=== PATIENT | female | born 1955 | race Caucasian/White ===

== ENCOUNTER 2017-08-22 15:27 | Observation (INO) | payer MEDICAID ==
[~2017-08-22] VITALS: Ht 157.5 cm; Wt 108.2 kg
--- NOTE | ~2017-08-22 | HEMODYNAMI ---
PATIENT:MEENA FIELDS MEDICAL RECORD: [id number] : 55 [id number] ADMISSION DATE: 08/22/17 Generatedon:08/23/20178:43 Patient name: MEENA FIELDS Patient #: [id number] SSN: : 1955 Date of study: 08/23/2017 Page: Of Hemodynamic Procedure Report Patient Data Patient Demographics Procedure consent was obtained First Name: MEENA Gender: Female Last Name: DIAMOND : 1955 Middle Initial: TWAN Age: 61 year(s) Patient #: [id number] Race: Unknown Additional ID: [id number] Contact details Address: [address] [place] [address] [facility] State: [place] City: [place] Zip code: [address] Admission Admission Data Admission Date: 08/22/2017 Admission Time: 17:32 Room #: D.2116 Height (in.): 62 BSA: 2.06 (m2) Height (cm.): 157.48 BMI: 43.62 (kg/m2) Weight (lbs.): 238.5 Weight (kg.): 108.18 Lab Results Lab Result Date: 08/22/2017 Lab Result Time: 15:00 Biochemistry Name Units Result Min Max BUN mg/dl 15 --(--*-)-- 7 18 Creatinine mg/dl 0.8 --(-*--)-- 0.6 1.3 CBC Name Units Result Min Max Hematocrit % 55.7 --(----)*- 42 54 Hemoglobin g/dl 17.6 --(----)*- 13.5 17.5 Procedure Procedure Types Cath Procedure Diagnostic Procedure [facility] Procedure Description Procedure Date Procedure Date: 08/23/2017 Procedure Start Time: 8:30 Procedure End Time: 8:41 Procedure Staff Name Function Hood Trevizo MD Performing Physician Nelda Guerra RT Monitor Coleen Petersen RT Scrub Gerson Pace RN Nurse Procedure Data Cath Procedure Fluoroscopy Diagnostic fluoroscopy Total fluoroscopy Time: 1.1 time: 1.1 min min Diagnostic fluoroscopy Total fluoroscopy dose: 293 dose: 293 mGy mGy Contrast Material Contrast Material Type Amount (ml) Isovue 300 40 Entry Location Entry Primary Successful Side Size Upsize Upsize Entry Closure Succes sful Closure Location (Fr) 1 (Fr) 2 (Fr) Remarks Device Remarks Femoral Right 5 Fr Exoseal artery Estimated blood loss: 10 ml Diagnostic catheters Device Type Used For End Catheter Placement MULTIPACK JL 4.0 5Fr Procedure catheter MULTIPACK 3DRC 5Fr Procedure catheter MULTIPACK Pigtail 5 Fr Procedure catheter Procedure Complications No complications Procedure Medications Medication Administration Route Dosage Oxygen NC 2 l/min Lidocaine 2% added to field 20 Heparin Flush Bag added to field 2 bags (1000units/500ml NS) 0.9% NaCl I.V. 100 ml/hr Versed I.V. 1 mg Fentanyl I.V. 25 mcg Hemodynamics Rest BSA: 2.06 (m2) HGB: 17.6 (g/dl) O2 Consumption: Estimated: 190.75 (ml/min) O2 Co nsumption indexed: Estimated:92.6 (ml/min/m) Heart Rate: 65 (bpm) Pressure Samples Time Site Value (mmHg) Purpose Heart Use Rate(bpm) 8:37 LV 115/-4,12 EDP 68 Gradients Valve Time Site Site Mean SEP/DFP Peak To Heart Use 1 2 (mmHg) (sec/min) Peak Rate (mmHg) (bpm) Aortic 8:38 LV AO 67 Snapshots Pre Cath Intra NCS Post Cath Vital Signs Time Heart Resp SPO2 etCO2 NIBP (mmHg) Rhythm Pain Sedation Rate (ipm) (%) (mmHg) Status Level (bpm) 8:18:43 67 19 96 0 133/81(108) NSR 0 (11) 10(A) , No pain 8:22:51 67 17 97 0 134/84(106) NSR 0 (11) 10(A) , No pain 8:27:01 69 17 97 0.7 133/79(102) NSR 0 (11) 10(A) , No pain 8:31:11 67 15 94 0.7 128/78(87) NSR 0 (11) 10(A) , No pain 8:35:35 66 13 93 15.7 127/73(105) NSR 0 (11) 10(A) , No pain 8:39:43 71 14 94 31.4 127/75(96) NSR 0 (11) 10(A) , No pain Medications Time Medication Route Dose Verified Delivered Reason Notes Effec tiveness by by 8:05:44 Oxygen NC 2 Hood Buffie used for l/min Santhosh Pace RN procedure MD 8:05:50 Lidocaine 2% added 20ml Hood Hood for local to vial Santhosh Trevizo MD anesthetic field MD 8:05:57 Heparin Flush added 2 Hood Hood used for Bag to bags Santhosh Trevizo MD procedure (1000units/500ml field LAU NS) 8:06:07 0.9% NaCl I.V. 100 Hood Buffie Per ml/hr Santhosh Pace RN physician 8:27:28 Versed I.V. 1 mg Hood Buffie for Santhosh Pace RN sedation 8:27:34 Fentanyl I.V. 25 Hood Buffie for mcg Santhosh Pace RN sedation Procedure Log Time Note 7:53:27 Coleen Petersen RT(R) sent for patient. Start room use. 7:53:28 Time tracking: Regular hours 7:53:33 Plan of Care:Hemodynamics will remain stable., Cardiac rhythm will remain stable., Comfort level will be maintained., Respiratory function will remain adequate., Patient/ family verbilizes understanding of procedure., Procedure tolerated without complication., Recovers from procedure without complications.. 8:05:44 Oxygen 2 l/min NC was administered by Gerson Pace RN; used for procedure; 8:05:50 Lidocaine 2% 20ml vial added to field was administered by Hood Trevizo MD; for local anesthetic; 8:05:57 Heparin Flush Bag (1000units/500ml NS) 2 bags added to field was administered by Hood Trevizo MD; used for procedure; 8:06:07 0.9% NaCl 100 ml/hr I.V. was administered by Gerson Pace RN; Per physician; 8:13:05 Patient received from Med II to CCL 2 Alert and oriented. Tansferred to table in Supine position. 8:13:07 Warm blankets applied, and chester hugger turned on for patient comfort. 8:13:07 Correct patient and procedure confirmed by team. 8:13:10 Signed procedure consent form obtained from patient. 8:13:11 ECG and BP/O2 sat monitors applied to patient. 8:17:21 Vital chart was started 8:17:22 Baseline sample Acquired. 8:17:25 Rhythm: sinus rhythm 8:17:26 Full Disclosure recording started 8:17:30 H&P Date Dictated: 08/23/2017 New H&P dictated by physician.. 8:17:31 Pre-procedure instructions explained to patient. 8:17:32 Pre-op teaching completed and patient verbalized understanding. 8:17:34 Family in waiting room. 8:17:35 Patient NPO since Midnight. 8:17:37 Is the patient allergic to Iodine/contrast media? No. 8:17:53 Is patient on blood thinner?Yes 8:17:56 ACC The patient was administered the following blood thiners within the last 24 hours: ACCPlavix 8:17:58 Patient diabetic? No. 8:18:02 Previous problem with sedation/anesthesia? No ? 8:18:04 Snore? Yes 8:18:05 Sleep apnea? No 8:18:06 Deviated septum? No 8:18:07 Opens mouth fully? Yes 8:18:08 Sticks out tongue? Yes 8:18:10 Airway obstruction? No ? 8:18:12 Dentures? No ? 8:19:01 Pre procedure: right dorsailis pedis pulse 2+ Normal; easily identifiable; not easily obliterated 8:19:06 Patient pain scale 0/10 ?. 8:19:11 IV patent on arrival in right hand with 0.9% NaCl at [facility]. 8:19:13 Lab results completed and on chart. 8:19:53 Lab Result : Creatinine 0.8 mg/dl 8:19:53 Lab Result : BUN 15 mg/dl 8:19:53 Lab Result : Hemoglobin 17.6 g/dl 8:19:53 Lab Result : Hematocrit 55.7 % 8:19:57 Right groin area was prepped with chlora-prep and draped in sterile fashion 8:19:58 Alarms reviewed by Subhash Carreno 8:20:04 Use device set Femoral Dx 8:20:05 ACIST Syringe (01329) opened to sterile field. 8:20:05 Bag Decanter (2002S) opened to sterile field. 8:20:06 Medline Cath Pack ([id number]) opened to sterile field. 8:20:07 ACIST Hand Control (39491) opened to sterile field. 8:20:08 ACIST Manifold (91817) opened to sterile field. 8:20:09 Tegaderm 4 x 4 (1626W) opened to sterile field. 8:20:11 MICROPUNCTURE 4FR Cook ([id number]) opened to sterile field. 8:20:30 SHEATH Prelude 5Fr 0.035 ([id number]-1G-01-035) opened to sterile field. 8:20:34 DIAGNOSTIC Multipack 5Fr catheter set ([id number]) opened to sterile field. 8:20:46 Physician arrived 8:20:47 --------ALL STOP TIME OUT------ 8:20:49 Right groin site verified by team. 8:20:52 Physical assessment completed. ASA score P 2 - A patient with mild systemic disease as per Hood Trevizo MD. 8:20:55 Sedation plan: IV Moderate Sedation Medication:Versed, Fentanyl 8:24:49 Patient Height : 62 inches 8:24:57 Patient Weight : 238.5 lbs 8:27:28 Versed 1 mg I.V. was administered by Gerson Pace RN; for sedation; 8:27:34 Fentanyl 25 mcg I.V. was administered by Gerson Pace RN; for sedation; 8:30:41 Procedure started. 8:30:58 Local anesthetic to right femoral artery with Lidocaine 2% by Hood Trevizo MD.INITIAL ACCESS ONLY 8:31:08 A 5 Fr sheath was inserted into the Right Femoral artery 8:32:11 DIAGNOSTIC WIRE .035 260cm J wire (021166) opened to sterile field. 8:32:12 SHEATH 5FR [place] (GVO144) opened to sterile field. 8:32:21 A MULTIPACK JL 4.0 5Fr catheter was advanced over the wire and used for Procedure. 8:32:25 LCA angiography performed. 8:35:11 A MULTIPACK 3DRC 5Fr catheter was advanced over the wire and used for Procedure. 8:35:58 RCA angiography performed. 8:36:06 Catheter removed. 8:36:35 A MULTIPACK Pigtail 5 Fr catheter was advanced over the wire and used for Procedure. 8:36:47 LV angiography performed. 8:37:25 LV gram done using GARZA 8:37:52 LV hemodynamics recorded. 8:38:10 EF : 60 % 8:38:19 Catheter removed. 8:38:22 EXOSEAL 5Fr (EX500) opened to sterile field. 8:39:05 Sheath removed intact; hemostasis achieved with Exoseal to the Right Femoral artery. 8:39:08 Procedure ended.(Physican Out) 8:39:46 Fluoroscopy time 01.10 minutes. 8:39:50 Flurop Dose total: 293 8:39:50 Fluoroscopy dose: 293 mGy 8:39:54 Contrast amount:Isovue 300 40ml. 8:39:56 Sharps counted by scrub and verified by R.N. 8:39:57 Insertion/operative site no bleeding no hematoma. 8:40:02 Post-op/insertion site Right Femoral artery dressed using a 4 x 4 and Tegaderm. 8:40:03 Post Procedure Pulses reassessed and unchanged 8:40:09 Post-procedure physical assessment completed. ASA score P 2 - A patient with mild systemic disease as per Hood Trevizo MD. 8:40:12 Post procedure rhythm: unchanged. 8:40:15 Estimated blood loss: 10 ml 8:40:18 Post procedure instruction explained to patient.Patient verbalizes understanding. 8:40:19 Patient needs reinforcement of post procedure teaching. 8:40:25 Procedure and supply charges have been captured, reviewed, submitted and are correct. 8:41:18 Procedure Complication : No complications 8:41:21 Vital chart was stopped 8:41:21 See physician's report for complete and final results. 8:41:24 Report given to Med II. 8:41:26 Patient transfered to Med II with Bed. 8:41:28 Procedure ended. 8:41:28 Full Disclosure recording stopped 8:41:32 End room use (Document Last) Device Usage Item Name Manufacture Quantity Catalog Number Hospital Part Current M inimal Lot# / Charge Number Stock Stock Serial# Code ACIST Syringe Acist 1 43496 159751 198306 431478 2 0 (91602) [employer] Bag Decanter Microtek 1 [id number] 69879 954047 5 () [employer] Inc[employer] Medline Cath Cardinal 1 [id number] 109282 93484 772459 5 [employer] ([id number]) ACIST Hand Acist 1 23948 446554 635434 709977 5 Control (27188) [employer] ACIST Manifold Acist 1 20335 271630 613078 801572 5 (44845) [employer] Tegaderm 4 x 4 3M 1 1626W 392268 310448 313173 5 (1626W) MICROPUNCTURE Cook Medical 1 [id number] 420603 723278 558812 5 4FR Cook ([id number]) SHEATH Prelude Merit 1 [id number]-40-035 836624 967350 457706 5 5Fr 0.035 Medical ([id number]-2I-55-035) DIAGNOSTIC Cardinal 1 [id number] 498526 49961 467985 3 0 Multipack 5Fr Health catheter set ([id number]) DIAGNOSTIC WIRE [facility] 1 233041 010435 409550 883704 3 0 .035 260cm J wire (206774) SHEATH 5FR Terumo 1 CSF923 493492 683603 516443 4 0 [place] (PGB867) MULTIPACK JL Cardinal 1 043025 5 4.0 5Fr Health catheter MULTIPACK 3DRC Cardinal 1 154290 5 5Fr catheter Health MULTIPACK Cardinal 1 487227 5 Pigtail 5 Fr Health catheter EXOSEAL 5Fr Cardinal 1 EX500 695274 072752 813264 1 0 (EX500) Health Signature Audit [place] Stage Time Signature Unsigned Intra-Procedure 08/23/2017 Coleen Petersen 8:43:53 AM RT(R) Signatures Monitor : Nelda Guerra RT Signature : Date : Time : [facility] [address] [facility] [place] [address]
[2017-08-22 16:23] LABS: BASOPHILS 0.4 % (0-2); EOSINOPHILS 5.3 % (0-7); HEMATOCRIT 55.7 % (36.0-48.0); HEMOGLOBIN 17.6 g/dL (12-16); IMMATURE GRANULOCYTES 0.4 % (0-5); LYMPHOCYTES 15.7 % (15-50); MCH 27.8 pg (26.0-34.0); MCHC 31.6 g/dL (31.0-37.0); MCV 87.9 fL (80.0-100.0); MEAN PLATELET VOLUME 10.1 fL (7.4-10.4); MONOCYTES 6.3 % (2-11); NEUTROPHILS 71.9 % (40-80); RBC 6.34 10x6/uL (4.00-5.40); RDW 13.4 % (11.5-14.5); WBC 5.3 10x3/uL (4.8-10.8)
[2017-08-22 16:26] LABS: PLATELET COUNT 124 10x3/uL (130-400)
[2017-08-22 16:39] LABS: ALBUMIN 3.4 g/dL (3.4-5.0); ALKALINE PHOSPHATASE 59 U/L (46-116); ALT (SGPT) 23 U/L (10-68); BILIRUBIN - TOTAL 0.33 mg/dL (0.2-1.3); CALC OSMOLALITY 281 mosm/kg (275-300); CALCIUM 8.8 mg/dL (8.5-10.1); CARBON DIOXIDE 23.4 mmol/L (21.0-32.0); CHLORIDE - SERUM 106 mmol/L (98-107); CREATININE - SERUM 0.8 mg/dL (0.6-1.3); GLUCOSE 131 mg/dL (74-106); POTASSIUM - SERUM 4.9 mmol/L (3.5-5.1); PROTEIN - SERUM 7.4 g/dL (6.4-8.2); SODIUM 140 mmol/L (136-145); UREA NITROGEN 15 mg/dL (7-18); eGFR NON AFRICAN AMERICAN 77 mL/min (90-120)
[2017-08-22 16:53] LABS: CHOL - HDL RATIO 2.8 ratio (2.3-4.1); CHOLESTEROL, TOTAL 163 mg/dL (0-200); CKMB 1.5 U/L (0.0-3.6); CREATINE KINASE 145 UL (21-215); HDL CHOLESTEROL 58 mg/dL (32-96); LDL CHOLESTEROL 69 mg/dL (0-100); LDL-HDL RATIO 1.2 ratio (1.5-3.5); MAGNESIUM - SERUM 1.9 mg/dL (1.8-2.4); TRIGLYCERIDE 183 mg/dL (30-200)
[2017-08-22 16:57] LABS: TROPONIN-I < 0.017 ng/mL (0.000-0.060)
[2017-08-22 18:23] LABS: CREATINE KINASE 84 UL (21-215); TROPONIN-I < 0.017 ng/mL (0.000-0.060)
[2017-08-22 21:01] VITALS: BP 112/55
[2017-08-22 22:51] VITALS: BP 112/55; BMI 43.1
[2017-08-23 00:36] LABS: CKMB 0.9 U/L (0.0-3.6); CREATINE KINASE 75 UL (21-215); TROPONIN-I < 0.017 ng/mL (0.000-0.060)
[2017-08-23] MEDS ORDERED: ZOCOR20 MG PO (03:40)
[2017-08-23] MEDS ORDERED: KLONOPIN0.5 MG PO (03:40)
[2017-08-23] MEDS ORDERED: BUPROPION HCL75 MG PO (03:41)
[2017-08-23] MEDS ORDERED: LEXAPRO10 MG PO (03:41)
[2017-08-23] MEDS ORDERED: LISINOPRIL10 MG PO (03:41)
[2017-08-23] MEDS ORDERED: BAYER CHEWABLE81 MG PO (03:42)
[2017-08-23] MEDS ORDERED: FERROUS SULFAT325 MG PO (03:42)
[2017-08-23 06:22] VITALS: BP 111/55
[2017-08-23 06:35] LABS: CKMB 0.8 U/L (0.0-3.6); CREATINE KINASE 67 UL (21-215); TROPONIN-I < 0.017 ng/mL (0.000-0.060)
[2017-08-23 07:54] LABS: BASOPHILS 0.6 % (0-2); EOSINOPHILS 6.5 % (0-7); IMMATURE GRANULOCYTES 0.1 % (0-5); LYMPHOCYTES 19.4 % (15-50); MCH 28.3 pg (26.0-34.0); MCHC 32.1 g/dL (31.0-37.0); MCV 88.3 fL (80.0-100.0); MEAN PLATELET VOLUME 10.4 fL (7.4-10.4); MONOCYTES 11.3 % (2-11); NEUTROPHILS 62.1 % (40-80); RDW 13.5 % (11.5-14.5)
[2017-08-23 07:55] LABS: CALCIUM 9.2 mg/dL (8.5-10.1); CARBON DIOXIDE 26.9 mmol/L (21.0-32.0); CREATININE - SERUM 0.9 mg/dL (0.6-1.3)
[2017-08-23 07:57] LABS: POTASSIUM - SERUM 3.9 mmol/L (3.5-5.1)
[2017-08-23 08:06] LABS: HEMATOCRIT 37.7 % (36.0-48.0); HEMOGLOBIN 12.1 g/dL (12-16); PLATELET COUNT 260 10x3/uL (130-400); RBC 4.27 10x6/uL (4.00-5.40); WBC 7.7 10x3/uL (4.8-10.8)
[2017-08-23 08:20] VITALS: Ht 157.5 cm; Wt 108.2 kg
[2017-08-23 11:40] VITALS: BP 101/65
== END 2017-08-23 14:32 | disposition home or self-care (01) ==
LOC: D.ER 15:27 → D.M2 17:32 → OBSVTIME 17:32 → D.EDHOLD 17:32 → D.M2 17:34
PROVIDERS: Emergency Medicine; Internal Medicine Cardiovascular Disease
DX: I25.110 Atherosclerotic heart disease of native coronary artery with unstable angina pectoris (principal); K21.9 Gastro-esophageal reflux disease without esophagitis; F32.9 Major depressive disorder, single episode, unspecified; I10 Essential (primary) hypertension

== ENCOUNTER → 2017-11-22 14:54 | Outpatient (CLI) | payer MEDICAID ==
[2017-08-23 08:20] VITALS: BMI 43.1
[~2017-11-22 14:54] MED LIST: BAYER CHEWABLE81 MG PO; BUPROPION HCL75 MG PO; FERROUS SULFAT325 MG PO; KLONOPIN0.5 MG PO; LEXAPRO10 MG PO; LISINOPRIL10 MG PO; ZOCOR20 MG PO
== END | disposition home or self-care (01) ==
LOC: D.MRI 11:00
DX: M54.5 Low back pain (principal)

== ENCOUNTER 2018-12-17 12:33 | Outpatient (CLI) | payer MEDICAID ==
[~2018-12-17] VITALS: Ht 157.5 cm; Wt 111.4 kg
[2018-12-17 12:42] VITALS: Ht 157.5 cm; Wt 111.4 kg
[2018-12-17 16:35] VITALS: BP 131/87
--- NOTE | 2018-12-17 19:40 | NUR ---
1800 IV REMOVED AND INSTRUCTIONS GIVEN TO PT AND DAUGHTER. INSTRUCTED TO CALL DR RIVERA OFFICE IN AM AND NEXIUM 40MH PO DAILY. CHEW FOOD
== END 2018-12-17 18:40 | disposition home or self-care (01) ==
LOC: D.SDCHOLD 12:33 → D.OPS 12:33 → D.ER 12:33 → EDSTATUS 15:37 → D.SDCHOLD 15:39 → D.OPS 18:40
PROVIDERS: ATTEND Internal Medicine Gastroenterology
DX: T18.128A Food in esophagus causing other injury, initial encounter (principal)